=== PATIENT | female | born 2000 | race Caucasian/White ===

== ENCOUNTER 2023-06-14 10:36 | Emergency (ER) | payer OTHER ==
[2023-06-14 10:48] VITALS: BP 102/66; PULSE 80; RESP 16; TEMP 97.6; BMI 27.4
== END 2023-06-14 11:56 | disposition home or self-care (01) ==
LOC: JERFT 10:36 → JER 10:36 → JERFT 11:56
DX: H92.01 Otalgia, right ear (principal); H60.91 Unspecified otitis externa, right ear
CPT/HCPCS: 99283-25